=== PATIENT | male | born 1975 | race Caucasian/White ===

== ENCOUNTER → 2020-05-26 | Outpatient (CLI) | payer OTHER ==
[2020-05-26 16:21] LABS: CREATININE 0.9 mg/dL (0.7-1.3)
== END ==
LOC: LAB 15:50
PROVIDERS: ATTEND Nurse Practitioner
DX: I25.10 Atherosclerotic heart disease of native coronary artery without angina pectoris (principal); R63.4 Abnormal weight loss

== ENCOUNTER → 2020-06-12 | Outpatient (CLI) | payer OTHER | LOC: CAT 09:51 | PROVIDERS: ATTEND Nurse Practitioner | DX: Z13.6 Encounter for screening for cardiovascular disorders (principal); I25.10 Atherosclerotic heart disease of native coronary artery without angina pectoris; E78.00 Pure hypercholesterolemia, unspecified ==